=== PATIENT | male | born 1930 | race Caucasian/White ===

== ENCOUNTER 2017-09-21 02:40 | Inpatient (IN) | payer MEDICARE, OTHER ==
[~2017-09-21] VITALS: Ht 170.2 cm; Wt 74.8 kg
[2017-09-21] VITALS (7 sets, daily range): BP systolic 101–127; BP diastolic 48–70; BMI 25.9
--- NOTE | ~2017-09-21 | CN ---
PATIENT NAME:AKBAR GAN MEDICAL RECORD: [id number] : [birth year] LOCATION:DTamm[facility] D.2104 ADMIT DATE: 09/21/17 ACCOUNT: [id number] CONSULTING PHYSICIAN: KARTIK ALARCON REFERRING PHYSICIAN: SUSAN MONTAÑO MD DATE OF CONSULTATION: 09/24/2017 HISTORY OF PRESENT ILLNESS: This is an 87-year-old man who was admitted for increasing confusion and combativeness and change in mental status. The patient was in the Emergency Room, was noted to have a pneumonia as well as acute kidney injury. She has had a history of benign prostatic hypertrophy. The patient denies any coughing, has been short of breath. There is no fever or chills. PAST MEDICAL HISTORY: Remarkable for hypertension, benign prostatic hypertrophy, and anemia. SOCIAL HISTORY: Unknown. REVIEW OF SYSTEMS: Unobtainable from the patient who appears to be confused. The patient was recently discharged home from the hospital and given Biaxin. PHYSICAL EXAMINATION: Reveals: GENERAL: Elderly man who is in no acute distress, mildly confused. VITAL SIGNS: Blood pressure 104/66, heart rate of 103, respiratory rate of 18, temperature 97.9. SHEENT: Showed dehydrated skin and also mucosa. NECK: Supple. There is no adenopathy. There is no tenderness. Trachea is midline. CHEST: Showed bilateral coarse crackles and coughing. There is no chest wall tenderness. No accessory muscle use. HEART: Shows no jugular venous distention. No murmur or gallop. ABDOMEN: Benign without any tenderness. EXTREMITIES: No clubbing, cyanosis or edema. LABORATORY DATA: White count is 13.2, hemoglobin 9.2, platelet count is 263. Chemistry is remarkable for sodium of 134, CO2 of 21 and BUN is 47, creatinine is 4.1. A chest x-ray showed alveolar and interstitial densities in the left lung and in the right lower lobe probably secondary to pneumonia and soft tissues. There is a small left pleural effusion. ASSESSMENT: 1. Community-acquired pneumonia that probably from aspiration. 2. Acute kidney injury, probably secondary to dehydration. 3. History of benign prostatic hypertrophy. 4. Possible chronic obstructive lung disease. PLAN: 1. Antibiotics. 2. Bronchodilators. 3. IV hydration. 4. Mucolysis. 5. Follow chest x-ray. 6. Arterial blood gas. TRANSINT:[id number] Voice Confirmation ID: [id number] DOCUMENT ID: [id number] CONSULT REPORT [id number] AKBAR GAN AUGUSTINE K at 0829 CC: [id number] DICTATION DATE: 09/24/171946 GRANTS ANALYST: 09/25/17 0016 ADM IN [facility] [address] [id number]
--- NOTE | ~2017-09-21 | PN ---
PATIENT:AKBAR GAN MEDICAL RECORD: [id number] LOCATION:D. D.210 ADMISSION DATE: 09/21/17 PROGRESS NOTE DATE OF SERVICE: 09/26/2017 SUBJECTIVE: This is an 87-year-old male who was admitted with increasing shortness of breath. The patient has had a nonproductive cough. He had what appeared to be pleural effusion. A CT thoracentesis was ordered, but there was no fluid. The patient coughed up thick secretions this morning and is feeling better. He is breathing well and deep. There is no chest pain. PHYSICAL EXAMINATION: GENERAL: Reveals an elderly man who is in no acute distress. VITAL SIGNS: Temperature 97.5, heart rate of 88, respiratory rate of 18, blood pressure 132/69. SHEENT: Unremarkable. NECK: Supple. CHEST: Clear and symmetrical. There are no crackles. HEART: Shows no jugular venous distention, murmur or gallops. ABDOMEN: Benign. EXTREMITIES: Shows no clubbing, cyanosis or edema. LABORATORY DATA: Shows a white count of 9.2, hemoglobin 8.3 and platelet count is 242. Chemistry is remarkable for potassium of 3.7, carbon dioxide is 29, creatinine is 3.4, BUN is 66. ASSESSMENT: 1. Acute asthmatic bronchitis with mucous plugs improved on x-ray except mucous. 2. Chronic renal disease. 3. Chronic anemia secondary to renal disease. PLAN: 1. Continue on bronchodilators. 2. Continue antibiotics for at least 5 days IV. We will sign off on the patient as he is improved. TRANSINT:[id number] Voice Confirmation ID: [id number] DOCUMENT ID: [id number] KARTIK ALARCON at 1543 CC: [id number] DICTATION DATE: 09/26/17 175 CREDIT COLLECTION ASSOCIATE: 09/26/17 211 ADM IN [facility] [address] [place] [address]
--- NOTE | ~2017-09-21 | CN ---
PATIENT NAME:AKBAR GAN MEDICAL RECORD: [id number] : [birth year] LOCATION:D. D.2104 ADMIT DATE: 09/21/17 ACCOUNT: [id number] CONSULTING PHYSICIAN: GLORIA GOODEN MD REFERRING PHYSICIAN: SUSAN MONTAÑO MD DATE OF CONSULTATION: 09/22/2017 HISTORY OF PRESENT ILLNESS: An 87-year-old gentleman, a poor historian was transferred here for pneumonitis, confusion and he was noted also to have elevated troponins. The patient is somewhat somnolent, but not combative at this point. Reports no chest pain, has had dyspnea by his report, however, for years, although history is really somewhat tenuous at best. He reports he does have a history of hypertension. We are asked to see him concerning his elevated troponin. ALLERGIES: Azithromycin. MEDICATIONS: Currently in [place] and reviewed. REVIEW OF SYSTEMS: Unobtainable due to the patient factors. SOCIAL HISTORY: Unobtainable due to the patient factors. PHYSICAL EXAMINATION: GENERAL: Pleasantly confused gentleman in no acute distress. VITAL SIGNS: Blood pressure 134/63, pulse 127. HEENT: Normocephalic, atraumatic. NECK: No bruits noted. HEART: Regular. There is a probable S4 gallop. LUNGS: Fairly good air excursion, prolonged respiratory phase. ABDOMEN: Soft, nontender. EXTREMITIES: Pulses palpable 1+. There is no edema. DIAGNOSTIC DATA: ECG shows LVH with secondary ST-T changes. IMPRESSION: Elevated cardiac enzymes, probably type 2 demand ischemia with pneumonitis, anemia, decreased clearance as well secondary to an elevated creatinine. Given tachycardia, we will add low-dose cardioselective beta blockade. Already on DVT prophylaxis. Echo study will be reviewed. TRANSINT:[id number] Voice Confirmation ID: [id number] DOCUMENT ID: [id number] GLORIA GOODEN MD at 1117 CC: [id number] DICTATION DATE: 09/22/17 1216 RAW FINISH MILL OPERATOR: 09/22/17 1226 ADM IN [facility] [address] [place] [address]
--- NOTE | ~2017-09-21 | EC ---
PATIENT:AKBAR GAN DATE OF SERVICE: 09/21/17 SEX: M MEDICAL RECORD: [id number] DATE OF : [birth year] LOCATION:D.M2 D.210 AGE OF PATIENT: 87 ADMISSION DATE: 09/21/17 REFERRING PHYSICIAN: INTERPRETING PHYSICIAN: GLORIA GOODEN MD ECHOCARDIOGRAM REPORT ECHO CHARGES 4 ECHO COMPLETE Date: 09/22 CLINICAL DIAGNOSIS: CHF ECHOCARDIOGRAPHIC MEASUREMENTS (adult normal given) AC root (d.<3.7cm) 3.6 cm LV Septum d (<1.2 cm> 1.1 cm Valve Excursion 1.7 cm LV Septum (systole) 1.2 cm Left Atria (s.<4.0cm> 3.3 cm LVPW d(<1.2cm) 1.3 cm RV (d.<2.3cm) 4.2 cm LVPW (sytole) 1.4 cm LV diastole(<5.6CM) 4.7 cm MV E-F(>70mm/sec) cm LV systole 3.4 cm LVOT Diameter 1.7 cm MV exc.(>10mm) 1.6 cm Est.ejection fraction (50-75%) % DOPPLER: LVIT cm/sec A 159 cm/sec E 93.0 cm/sec LA cm/sec RVSP 50 mmHg LVOT 98 cm/sec AOP1/2T m/s Asc. Ao 130 cm/sec RVOT 69 cm/sec RA cm/sec PA 107 cm/sec AV Gradient Peak 6.74 mmHg AV Mean 3.47 mmHg AV Area 2.0 cm MV Gradient Peak 17.34mmHg MV Mean 5.19 mmHg MV Area cm COMMENTS: Web Consultant: 2 NICK HEREDIA Financial Compliance Manager: 3 Dr. García TAPE# PACS Pericardial Effusion Y DATE OF SERVICE: Adequate 2D echo, color flow, spectral Doppler, and M-mode. No LVH. LV internal dimension is normal. Wall motion shows mild septal hypokinesis, however, LV function appears lower limits of normal to mildly reduced at 45% to 50%. Aortic valve sclerosis without stenosis. Doppler interrogation of left atrium is normal. Mitral valve shows no prolapse. Trace MR. Right-sided chamber size is normal. Trace TR. TRANSINT:[id number] Voice Confirmation ID: [id number] DOCUMENT ID: [id number] ECHOCARDIOGRAM REPORT [id number] AKBAR GAN,GLORIA Kumar MD at 1254 CC: [id number] DICTATION DATE: 09/23/17 0840 [place]: 09/23/17 1138 DIS IN 09/29/[address] [facility] [address] [place] [address]
--- NOTE | ~2017-09-21 | PN ---
PATIENT:AKBAR GAN MEDICAL RECORD: [id number] LOCATION:D. D.210 ADMISSION DATE: 09/21/17 PROGRESS NOTE DATE OF SERVICE: 09/27/2017 SUBJECTIVE: The patient is an 87-year-old male who was admitted for pneumonia and possible effusion. The patient had a CT scan with thoracentesis, but there was no fluid. The patient has since coughed up thick secretions and has been feeling well. There is no fever or chills. The patient has been ambulating in the halls. He requires no oxygen. The patient has had acute renal failure possibly on chronic renal failure. This has been stable. He has also been confused when he came in, but his mental status has improved. PHYSICAL EXAMINATION: GENERAL: Reveals an elderly man who is in no acute distress. VITAL SIGNS: Temperature 98.1, heart rate of 90, respiratory rate of 16, blood pressure 107/72. SHEENT: Unremarkable. NECK: Supple. CHEST: Clear and symmetrical with good air flow bilaterally. CARDIAC: Shows no jugular venous distention, murmur, or gallop. ABDOMEN: Benign without any tenderness, distention, or mass. EXTREMITIES: Show no clubbing, cyanosis, or edema. Lab exam shows white count of 7.3, hemoglobin 8.9, and platelet count is 247,000. Chemistry is remarkable for creatinine of 3.9, BUN 66, and bicarb is 21. ASSESSMENT: 1. Pneumonia. This is improving with improved white cells. 2. Metabolic encephalopathy, probably secondary to dehydration. This has also improved. 3. [id number] renal failure, has improved. On admission, was 4.1-5.4 and now is down to 2.5. Baseline is 1.9. PLAN: 1. Continue antibiotics. 2. Disposition as per PCP. We will sign off. If needed, please call pulmonary team. TRANSINT:[id number] Voice Confirmation ID: [id number] DOCUMENT ID: [id number] KARTIK ALARCON at 1307 CC: [id number] DICTATION DATE: 09/27/17 1717 SOFTWARE ENGINEER: 09/27/172019 DIS IN 09/29/17 [id number] [place] [address]
[2017-09-21 03:30] LABS: ALBUMIN 2.8 g/dL (3.4-5.0); ALKALINE PHOSPHATASE 86 U/L (46-116); ALT (SGPT) 22 U/L (10-68); CALC OSMOLALITY 268 mosm/kg (275-300); CALCIUM 8.6 mg/dL (8.5-10.1); CARBON DIOXIDE 25.6 mmol/L (21.0-32.0); CHLORIDE - SERUM 101 mmol/L (98-107); CREATININE - SERUM 1.9 mg/dL (0.6-1.3); GLUCOSE 73 mg/dL (74-106); POTASSIUM - SERUM 3.9 mmol/L (3.5-5.1); PROTEIN - SERUM 5.7 g/dL (6.4-8.2); SODIUM 133 mmol/L (136-145); UREA NITROGEN 25 mg/dL (7-18); eGFR NON AFRICAN AMERICAN 36 mL/min (90-120)
[2017-09-21 03:47] LABS: CKMB 23.5 U/L (0.0-3.6); CREATINE KINASE 377 UL (21-232)
[2017-09-21 07:06] LABS: BASOPHILS 0.3 % (0-2); EOSINOPHILS 1.3 % (0-7); HEMATOCRIT 27.6 % (42.0-54.0); HEMOGLOBIN 9.2 g/dL (13.5-17.5); IMMATURE GRANULOCYTES 0.1 % (0-5); LYMPHOCYTES 13.3 % (15-50); MCH 28.8 pg (26.0-34.0); MCHC 33.3 g/dL (31.0-37.0); MCV 86.5 fL (80.0-100.0); MONOCYTES 10.5 % (2-11); NEUTROPHILS 74.5 % (40-80); PLATELET COUNT 280 10x3/uL (130-400); RBC 3.19 10x6/uL (4.20-6.10); RDW 13.4 % (11.5-14.5); WBC 6.8 10x3/uL (4.8-10.8)
[2017-09-21 13:56] LABS: % SATURATION 8 % (15-55); IRON 18 ug/dl (35-150); TOTAL IRON BIND CAPACITY 211 ug/dl (260-445); UNSAT IRON BIND CAPACITY 193 ug/dl (150-375)
[2017-09-21 14:15] LABS: CKMB 30.4 U/L (0.0-3.6)
[2017-09-21 14:16] LABS: CREATINE KINASE 518 UL (21-232); TROPONIN-I 8.544 ng/mL (0.000-0.060)
[2017-09-21 15:53] LABS: APPEARANCE CLEAR (CLEAR); BILIRUBIN NEGATIVE (NEGATIVE); COLOR YELLOW (YELLOW); GLUCOSE NEGATIVE (NEGATIVE); KETONE NEGATIVE (NEGATIVE); NITRITE NEGATIVE (NEGATIVE); PROTEIN NEGATIVE (NEGATIVE); SPECIFIC GRAVITY 1.015 (1.005-1.020); UROBILINOGEN NORMAL (NORMAL)
[2017-09-21 15:54] LABS: WHITE CELLS - URINE 0-5 /hpf (0-5)
[2017-09-21 15:55] LABS: BACTERIA MODERATE /hpf (NONE SEEN)
[2017-09-21 15:56] LABS: GRANULAR CAST OCC /lpf (NONE SEEN)
[2017-09-21 18:32] LABS: CKMB 28.1 U/L (0.0-3.6); CREATINE KINASE 477 UL (21-232)
[2017-09-21 18:40] LABS: TROPONIN-I 8.095 ng/mL (0.000-0.060)
[2017-09-22 00:11] LABS: CKMB 18.1 U/L (0.0-3.6); CREATINE KINASE 382 UL (21-232)
[2017-09-22 00:12] LABS: TROPONIN-I 6.914 ng/mL (0.000-0.060)
[2017-09-22 02:09] VITALS: BP 108/57
[2017-09-22 04:55] LABS: BASOPHILS 0.3 % (0-2); HEMATOCRIT 26.3 % (42.0-54.0); HEMOGLOBIN 8.7 g/dL (13.5-17.5); IMMATURE GRANULOCYTES 0.3 % (0-5); MCH 28.4 pg (26.0-34.0); MCHC 33.1 g/dL (31.0-37.0); MCV 85.9 fL (80.0-100.0); MEAN PLATELET VOLUME 8.7 fL (7.4-10.4); MONOCYTES 8.7 % (2-11); NEUTROPHILS 72.7 % (40-80); PLATELET COUNT 263 10x3/uL (130-400); RBC 3.06 10x6/uL (4.20-6.10); RDW 13.6 % (11.5-14.5)
[2017-09-22 04:57] LABS: CALCIUM 8.6 mg/dL (8.5-10.1); CARBON DIOXIDE 22.9 mmol/L (21.0-32.0); CREATININE - SERUM 1.9 mg/dL (0.6-1.3); POTASSIUM - SERUM 3.9 mmol/L (3.5-5.1)
[2017-09-22 06:26] VITALS: BP 108/66
[2017-09-22 08:23] VITALS: BP 106/67
[2017-09-22 11:41] VITALS: BP 134/63
[2017-09-22 16:11] VITALS: BP 139/69
[2017-09-22 21:07] VITALS: BP 130/76
[2017-09-23 01:16] VITALS: BP 133/72
[2017-09-23 05:10] VITALS: BP 121/71
[2017-09-23 06:56] LABS: BASOPHILS 0.1 % (0-2); EOSINOPHILS 0.1 % (0-7); HEMATOCRIT 26.5 % (42.0-54.0); HEMOGLOBIN 8.9 g/dL (13.5-17.5); IMMATURE GRANULOCYTES 0.3 % (0-5); LYMPHOCYTES 5.5 % (15-50); MCH 28.7 pg (26.0-34.0); MCHC 33.6 g/dL (31.0-37.0); MCV 85.5 fL (80.0-100.0); MEAN PLATELET VOLUME 8.9 fL (7.4-10.4); MONOCYTES 6.5 % (2-11); NEUTROPHILS 87.5 % (40-80); PLATELET COUNT 245 10x3/uL (130-400); RDW 13.7 % (11.5-14.5)
[2017-09-23 06:58] LABS: WBC 11.2 10x3/uL (4.8-10.8)
[2017-09-23 07:14] LABS: CALCIUM 8.6 mg/dL (8.5-10.1); CARBON DIOXIDE 23.2 mmol/L (21.0-32.0); POTASSIUM - SERUM 4.2 mmol/L (3.5-5.1)
[2017-09-23 07:16] LABS: CREATININE - SERUM 2.6 mg/dL (0.6-1.3)
[2017-09-23] MEDS ORDERED: FLOMAX0.4 MG PO (10:09)
[2017-09-23] MEDS ORDERED: LISINOPRIL10 MG PO (10:09)
[2017-09-23 13:12] VITALS: Ht 170.2 cm; Wt 74.8 kg
[2017-09-23 16:16] VITALS: BP 121/69
[2017-09-24 04:00] VITALS: BP 108/62
[2017-09-24 06:04] LABS: BASOPHILS 0 % (0-2); EOSINOPHILS 0.2 % (0-7); HEMATOCRIT 27.3 % (42.0-54.0); HEMOGLOBIN 9.2 g/dL (13.5-17.5); IMMATURE GRANULOCYTES 0.3 % (0-5); LYMPHOCYTES 4.8 % (15-50); MCH 28.8 pg (26.0-34.0); MCHC 33.7 g/dL (31.0-37.0); MCV 85.6 fL (80.0-100.0); MEAN PLATELET VOLUME 9.3 fL (7.4-10.4); MONOCYTES 6.6 % (2-11); NEUTROPHILS 88.1 % (40-80); PLATELET COUNT 263 10x3/uL (130-400); RBC 3.19 10x6/uL (4.20-6.10); RDW 13.9 % (11.5-14.5); WBC 13.2 10x3/uL (4.8-10.8)
[2017-09-24 06:27] LABS: ANION GAP 18.9 mmol/L (8-16); CALCIUM 8.8 mg/dL (8.5-10.1); CARBON DIOXIDE 20.7 mmol/L (21.0-32.0); POTASSIUM - SERUM 4.6 mmol/L (3.5-5.1)
[2017-09-24 06:28] LABS: CREATININE - SERUM 4.1 mg/dL (0.6-1.3)
[2017-09-24 07:30] LABS: FOLATE (FOLIC ACID) - SERUM >20.0 ng/mL (>3.0)
[2017-09-24 08:11] VITALS: BP 113/61
[2017-09-24 11:50] VITALS: BP 95/56
[2017-09-24 13:08] LABS: CREATINE KINASE 680 UL (21-232)
[2017-09-24 13:09] LABS: CKMB 5.7 U/L (0.0-3.6)
[2017-09-24 15:52] VITALS: BP 104/66
[2017-09-24 20:34] VITALS: BP 113/70
[2017-09-25 01:15] VITALS: BP 105/65
[2017-09-25 05:40] VITALS: BP 129/61
[2017-09-25 06:22] LABS: BASOPHILS 0 % (0-2); EOSINOPHILS 0.2 % (0-7); HEMATOCRIT 26.7 % (42.0-54.0); HEMOGLOBIN 9.2 g/dL (13.5-17.5); IMMATURE GRANULOCYTES 0.4 % (0-5); LYMPHOCYTES 4.5 % (15-50); MCH 29.3 pg (26.0-34.0); MCHC 34.5 g/dL (31.0-37.0); MEAN PLATELET VOLUME 9.2 fL (7.4-10.4); MONOCYTES 8.4 % (2-11); NEUTROPHILS 86.5 % (40-80); PLATELET COUNT 265 10x3/uL (130-400); RBC 3.14 10x6/uL (4.20-6.10)
[2017-09-25 06:59] LABS: ALBUMIN 2.6 g/dL (3.4-5.0); ANION GAP 18.3 mmol/L (8-16); BILIRUBIN - TOTAL 0.43 mg/dL (0.2-1.3); CALCIUM 8.9 mg/dL (8.5-10.1); POTASSIUM - SERUM 4.3 mmol/L (3.5-5.1); PROTEIN - SERUM 5.7 g/dL (6.4-8.2)
[2017-09-25 07:09] LABS: CREATININE - SERUM 5.4 mg/dL (0.6-1.3)
[2017-09-25 08:41] LABS: APTT 34.1 SECONDS (22.8-39.4); INR 1.3 (0.85-1.17); PROTIME 15.8 SECONDS (11.6-15.0)
[2017-09-25 08:42] VITALS: BP 124/64
[2017-09-25 11:38] VITALS: BP 131/69
[2017-09-25 16:04] VITALS: BP 121/70
[2017-09-25 21:02] VITALS: BP 108/63
[2017-09-26 05:35] LABS: BASOPHILS 0.1 % (0-2); HEMATOCRIT 24.9 % (42.0-54.0); HEMOGLOBIN 8.3 g/dL (13.5-17.5); IMMATURE GRANULOCYTES 0.5 % (0-5); LYMPHOCYTES 8.3 % (15-50); MCH 28.3 pg (26.0-34.0); MCHC 33.3 g/dL (31.0-37.0); MONOCYTES 10.1 % (2-11); PLATELET COUNT 242 10x3/uL (130-400); RBC 2.93 10x6/uL (4.20-6.10); RDW 13.7 % (11.5-14.5)
[2017-09-26 05:47] LABS: WBC 9.2 10x3/uL (4.8-10.8)
[2017-09-26 06:06] LABS: ANION GAP 15.2 mmol/L (8-16); CALCIUM 8.6 mg/dL (8.5-10.1); CARBON DIOXIDE 20.5 mmol/L (21.0-32.0); POTASSIUM - SERUM 3.7 mmol/L (3.5-5.1)
[2017-09-26 06:11] VITALS: BP 110/62
[2017-09-26 06:12] LABS: CREATININE - SERUM 3.9 mg/dL (0.6-1.3)
[2017-09-26 07:48] VITALS: BP 117/58
[2017-09-26 11:52] VITALS: BP 128/66
[2017-09-26 15:54] VITALS: BP 137/69
[2017-09-26 21:00] VITALS: BP 141/78
[2017-09-27 02:11] VITALS: BP 139/78
[2017-09-27 06:28] VITALS: BP 132/76
[2017-09-27 07:40] VITALS: BP 136/72
[2017-09-27 11:35] LABS: BASOPHILS 0.3 % (0-2); HEMATOCRIT 26.4 % (42.0-54.0); HEMOGLOBIN 8.9 g/dL (13.5-17.5); IMMATURE GRANULOCYTES 0.3 % (0-5); LYMPHOCYTES 7.1 % (15-50); MCH 28.9 pg (26.0-34.0); MCHC 33.7 g/dL (31.0-37.0); MCV 85.7 fL (80.0-100.0); MEAN PLATELET VOLUME 8.6 fL (7.4-10.4); MONOCYTES 9.3 % (2-11); PLATELET COUNT 247 10x3/uL (130-400); RBC 3.08 10x6/uL (4.20-6.10); WBC 7.3 10x3/uL (4.8-10.8)
[2017-09-27 11:55] VITALS: BP 127/70
[2017-09-27 11:56] LABS: ALBUMIN 2.3 g/dL (3.4-5.0); ANION GAP 12.2 mmol/L (8-16); BILIRUBIN - TOTAL 0.32 mg/dL (0.2-1.3); CALCIUM 8.5 mg/dL (8.5-10.1); CARBON DIOXIDE 23.3 mmol/L (21.0-32.0); PROTEIN - SERUM 5.2 g/dL (6.4-8.2)
[2017-09-27 11:58] LABS: CREATININE - SERUM 2.5 mg/dL (0.6-1.3); POTASSIUM - SERUM 4.5 mmol/L (3.5-5.1)
[2017-09-27 15:08] VITALS: BP 137/72
[2017-09-28] VITALS (7 sets, daily range): BP systolic 120–132; BP diastolic 60–78
[2017-09-28 08:31] LABS: ANION GAP 10.1 mmol/L (8-16); CALCIUM 8.6 mg/dL (8.5-10.1); CREATININE - SERUM 1.9 mg/dL (0.6-1.3); POTASSIUM - SERUM 4.1 mmol/L (3.5-5.1)
[2017-09-28] MEDS ORDERED: LOPRESSOR25 MG PO (12:41)
[2017-09-28] MEDS ORDERED: NIFEREX-150 CAP1 CA3 PO (12:44)
[2017-09-28 13:56] LABS: BASOPHILS 0.3 % (0-2); EOSINOPHILS 4.2 % (0-7); HEMATOCRIT 28.1 % (42.0-54.0); HEMOGLOBIN 9.2 g/dL (13.5-17.5); IMMATURE GRANULOCYTES 0.6 % (0-5); LYMPHOCYTES 8.2 % (15-50); MCH 28.3 pg (26.0-34.0); MCHC 32.7 g/dL (31.0-37.0); MCV 86.5 fL (80.0-100.0); MEAN PLATELET VOLUME 8.5 fL (7.4-10.4); MONOCYTES 9.1 % (2-11); NEUTROPHILS 77.6 % (40-80); PLATELET COUNT 285 10x3/uL (130-400); RBC 3.25 10x6/uL (4.20-6.10); RDW 13.9 % (11.5-14.5); WBC 7.9 10x3/uL (4.8-10.8)
[2017-09-29 04:00] VITALS: BP 112/57
[2017-09-29 05:38] LABS: BASOPHILS 0.3 % (0-2); EOSINOPHILS 5.5 % (0-7); HEMATOCRIT 25.6 % (42.0-54.0); HEMOGLOBIN 8.5 g/dL (13.5-17.5); IMMATURE GRANULOCYTES 0.5 % (0-5); LYMPHOCYTES 9.5 % (15-50); MCH 28.4 pg (26.0-34.0); MCHC 33.2 g/dL (31.0-37.0); MCV 85.6 fL (80.0-100.0); MEAN PLATELET VOLUME 8.6 fL (7.4-10.4); MONOCYTES 9.3 % (2-11); NEUTROPHILS 74.9 % (40-80); PLATELET COUNT 267 10x3/uL (130-400); RBC 2.99 10x6/uL (4.20-6.10); RDW 13.8 % (11.5-14.5); WBC 7.3 10x3/uL (4.8-10.8)
[2017-09-29 06:15] LABS: ANION GAP 9.8 mmol/L (8-16); CALCIUM 8.4 mg/dL (8.5-10.1); CARBON DIOXIDE 26.3 mmol/L (21.0-32.0); CREATININE - SERUM 1.9 mg/dL (0.6-1.3); POTASSIUM - SERUM 4.1 mmol/L (3.5-5.1)
[2017-09-29 08:37] VITALS: BP 104/54
[2017-09-29 12:27] VITALS: BP 125/56
== END 2017-09-29 16:37 | disposition home or self-care (01) | DRG 177 ==
LOC: D.ER 02:40 → D.M2 04:34
PROVIDERS: Emergency Medicine; Family Medicine Adult Medicine; General Practice; Internal Medicine Nephrology
DX: J69.0 Pneumonitis due to inhalation of food and vomit (principal); N17.0 Acute kidney failure with tubular necrosis; J96.01 Acute respiratory failure with hypoxia; G93.41 Metabolic encephalopathy; J44.0 Chronic obstructive pulmonary disease with (acute) lower respiratory infection; E87.1 Hypo-osmolality and hyponatremia; I24.8 Other forms of acute ischemic heart disease; N13.30 Unspecified hydronephrosis; I11.0 Hypertensive heart disease with heart failure; I50.9 Heart failure, unspecified; E86.0 Dehydration; N40.0 Benign prostatic hyperplasia without lower urinary tract symptoms; F03.90 Unspecified dementia, unspecified severity, without behavioral disturbance, psychotic disturbance, mood disturbance, and anxiety; N32.89 Other specified disorders of bladder; N28.1 Cyst of kidney, acquired; D63.1 Anemia in chronic kidney disease; T17.990A Other foreign object in respiratory tract, part unspecified in causing asphyxiation, initial encounter; J45.909 Unspecified asthma, uncomplicated